=== PATIENT | male | born 1945 | race Caucasian/White ===

== ENCOUNTER 2019-12-29 09:53 | Emergency (ER) | payer OTHER ==
[2019-12-29] MEDS ORDERED: ONDANSETRON 4 MG/2 ML VIAL ONE (10:33)
[2019-12-29] MEDS ORDERED: MORPHINE 4 MG/ML SYR ONE (10:33)
[2019-12-29] MEDS ORDERED: NA CHLORIDE 0.9% 1,000 ML ONE (10:34)
[2019-12-29 11:00] LABS: Absolute Lymphocytes (CBC) 0.8 K/uL (0.7-4.9); Basophils % 0.5 % (0-1.3); Hematocrit 42.9 % (39.6-49.0); Lymphocytes % 9.6 % (15.3-44.8); MPV 8.2 fL (7.6-11.3); RBC Red Blood Cell Count 4.77 M/uL (4.33-5.43)
--- NOTE | 2019-12-29 11:03 | RAD REPORT ---
EXAM DESCRIPTION: RAD - Chest Single View - 12/29/2019 10:57 am CLINICAL HISTORY: CHEST PAIN Chest pain. COMPARISON: No comparisons FINDINGS: Portable technique limits examination quality. The lungs are grossly clear. The heart is normal in size. No displaced fractures. IMPRESSION: No acute intrathoracic process suspected.
[2019-12-29 11:43] LABS: Albumin 3.4 g/dL (3.4-5.0); Bilirubin Direct 0.3 mg/dL (0-0.2); Potassium 4.1 mmol/L (3.5-5.1); Protein, Total 7.4 g/dL (6.4-8.2)
--- NOTE | 2019-12-29 12:06 | RAD REPORT ---
EXAM DESCRIPTION: CTAbdomen Pelvis W Contrast - 12/29/2019 11:57 am CLINICAL HISTORY: Abdominal pain. ABD PAIN COMPARISON: Mri Abdomen W/Wo Cont dated 09/19/2017 TECHNIQUE: Biphasic CT imaging of the abdomen and pelvis was performed with 100 ml non-ionic IV cont rast. All CT scans are performed using dose optimization technique as appropriate and may include automated exposure control or mA/KV adjustment according to patient size. FINDINGS: The lung bases are clear. Patient has a large mass in the right lobe of the liver measuring about 11 cm. Prior MR evaluation de monstrated giant hemangioma characteristics on MR dated 09/19/2017. No biliary dilatation seen. The s pleen, pancreas adrenal glands kidneys are within normal limits. No bowel obstruction, free air, free fluid or abscess. The appendix is surgically absent. Small bila teral fat containing inguinal hernias, slightly larger on the left. No evidence of significant lympha denopathy. Moderate prostatic megaly. No suspicious bony findings. IMPRESSION: No acute intra-abdominal or pelvic finding. Giant hemangioma again noted right lobe of the liver. Moderate prostatomegaly.
[2019-12-29 12:16] LABS: Urine Blood 2+ (NEG); Urine Glucose NEGATIVE (NEG); Urine Protein NEGATIVE (NEG); Urine Specific Gravity 1.025 (1.005-1.030); Urine pH 5.5 (5.0-7.0)
--- NOTE | 2019-12-29 12:50 | RAD REPORT ---
EXAM DESCRIPTION: US - Abdomen Exam Limited - 12/29/2019 12:38 pm CLINICAL HISTORY: RUQ ?GB;Abd pain COMPARISON: Abdomen Pelvis W Contrast dated 12/29/2019 FINDINGS: Gallbladder size is normal. Multiple mobile gallstones are clustered near the neck of the gallbladder. Moderate amount of sludge also present. No wall thickening or pericholecystic fluid. Com mon bile duct is normal with no common duct stone identified. Large masses present in the liver. Patient has a known giant hemangioma from prior imaging. IMPRESSION: Multiple gallstones and moderate sludge volume in a normal-sized gallbladder. No wall thickening, pericholecystic fluid or biliary tree abnormality.
--- NOTE | 2019-12-29 13:15 | ER ---
Nurse's Notes [facility] Name: Florentino Hollingsworth Age: 74 yrs Sex: Male : 1945 Arrival Date: 12/29/2019 Time: 09:55 Bed 13 Private MD: Man Rodriguez Diagnosis: Calculus of gallbladder without cholecystitis Presentation: 12/28 10:14 Chief complaint: Patient states: was just seen at [facility] this morning for RUQ pain iw that started around 0230 today, no vomiting, +nausea . Pt had CT, labs done, all was reported negative. Coronavirus screen: The patient has NOT traveled to a country currently being monitored by the [facility] within the last 14 days. Proceed with normal triage procedures. The patient has NOT had contact with any known and/or suspected case of coronavirus. Proceed with normal triage procedures. Ebola Screen: Patient negative for fever greater than or equal to 101.5 degrees Fahrenheit, and additional compatible Ebola Virus Disease symptoms Patient denies exposure to infectious person. Patient denies travel to an Ebola-affected area in the 21 days before illness onset. No symptoms or risks identified at this time. Initial Sepsis Screen: Does the patient meet any 2 criteria? No. Patient's initial sepsis screen is negative. Does the patient have a suspected source of infection? No. Patient's initial sepsis screen is negative. Risk Assessment: Do you want to hurt yourself or someone else? Patient reports no desire to harm self or others. 10:14 Method Of Arrival: Ambulatory iw 10:14 Acuity: WILLIE 3 iw Historical: - Allergies: 10:17 Aleve; iw - Home Meds: 10:17 None [Active]; iw - PMHx: 10:17 None; iw - PSHx: 10:17 Hernia repair; Appendectomy; bunion; iw - Immunization history:: Adult Immunizations not up to date. - Social history:: Smoking status: Patient denies any tobacco usage or history of. - Family history:: not pertinent. Screenin:40 Abuse screen: Denies threats or abuse. Nutritional screening: No deficits noted. em Tuberculosis screening: No symptoms or risk factors identified. Fall Risk None identified. Assessment: 10:40 General: Appears in no apparent distress. uncomfortable, Behavior is calm, cooperative, em Denies fever. Pain: Complains of pain in right upper quadrant Pain does not radiate. Pain currently is 8 out of 10 on a pain scale. Pain began 0230 this morning. Neuro: Level of Consciousness is awake, alert, obeys commands, Oriented to person, place, time, situation, Appropriate for age. Cardiovascular: Capillary refill < 3 seconds Patient's skin is warm and dry. Respiratory: Airway is patent Respiratory effort is even, unlabored, Respiratory pattern is regular, symmetrical. GI: Patient currently denies nausea, vomiting. Derm: Skin is intact, is healthy with good turgor, Skin is pink, warm \T\ dry. Musculoskeletal: Capillary refill < 3 seconds, Range of motion: intact in all extremities. 11:36 Reassessment: Patient appears in no apparent distress at this time. Patient and/or em family updated on plan of care and expected duration. Pain level reassessed. Patient is alert, oriented x 3, equal unlabored respirations, skin warm/dry/pink. rates pain 5/10 Patient states feeling better. Patient states symptoms have improved. 12:27 Reassessment: Patient appears in no apparent distress at this time. Patient and/or em family updated on plan of care and expected duration. Pain level reassessed. US at bedside. Vital Signs: 10:14 BP 184 / 90; Pulse 58; Resp 16; Temp 98.5; Pulse Ox 100% on R/A; Weight 95.25 kg; iw Height 6 ft. 0 in. (182.88 cm); Pain 8/10; 11:36 BP 168 / 72; Pulse 61; Resp 18; Pulse Ox 99% on R/A; Pain 5/10; em 12:40 BP 162 / 86; Pulse 59; Resp 18; Pulse Ox 100% on R/A; em 13:40 BP 174 / 85; Pulse 58; Resp 18; Pulse Ox 100% on R/A; em 10:14 Body Mass Index 28.48 (95.25 kg, 182.88 cm) iw ED Course: 09:55 Patient arrived in ED. ag5 09:56 Man Rodriguez MD is Private Physician. ag5 10:16 Triage completed. iw 10:17 Arm band placed on. iw 10:18 Eusebio Ramos MD is Attending Physician. ma2 10:27 Arnulfo Jenkins, RN is Primary Nurse. em 10:40 Patient has correct armband on for positive identification. Bed in low position. Call em light in reach. Adult w/ patient. Pulse ox on. NIBP on. 10:45 Initial lab(s) drawn, by me, sent to lab. Inserted saline lock: 20 gauge in right em antecubital area, using aseptic technique. Blood collected. 10:56 Chest Single View XRAY In Process Unspecified. EDMS 11:21 EKG done, by ED staff, reviewed by Eusebio Ramos MD. em1 11:59 CT Abd/Pelvis - IV Contrast Only In Process Unspecified. EDMS 12:42 US Abdomen Limited In Process Unspecified. EDMS 13:14 Luis Rocha MD is Referral Physician. ma2 13:39 No provider procedures requiring assistance completed. IV discontinued, intact, em bleeding controlled, No redness/swelling at site. Pressure dressing applied. Administered Medications: 10:45 Drug: NS 0.9% 1000 ml Route: IV; Rate: 1 bolus; Site: right antecubital; em 13:00 Follow up: IV Status: Completed infusion; IV Intake: 1000ml em 10:45 Drug: Zofran (Ondansetron) 4 mg Route: IVP; Site: right antecubital; em 11:35 Follow up: Response: No adverse reaction em 10:47 Drug: morphine 4 mg Route: IVP; Site: right antecubital; em 11:35 Follow up: Response: No adverse reaction; Marked relief of symptoms; Pain is decreased; em RASS: Alert and Calm (0) Intake: 13:00 IV: 1000ml; Total: 1000ml. em Outcome: 13:14 Discharge ordered by . ma2 13:39 Discharged to home ambulatory, with family. em 13:39 Condition: good 13:39 Discharge instructions given to patient, family, Instructed on discharge instructions, follow up and referral plans. medication usage, Demonstrated understanding of instructions, follow-up care, Prescriptions given X 2. 13:42 Patient left the ED. em Signatures: Dispatcher [employer] Arnulfo Mendoza RN RN em Williams, Irene, RN RN iw Martinez, Eric em1 Eusebio Ramos MD MD ma2 Gaskin, Ajare ag5
--- NOTE | 2019-12-29 13:15 | EDPHYS ---
Physician Documentation [facility] Name: Florentino Hollingsworth Age: 74 yrs Sex: Male : 1945 Arrival Date: 12/29/2019 Time: 09:55 Bed 13 Private MD: Man Rodriguez ED Physician Eusebio Ramos HPI: 12/28 13:12 This 74 yrs old Male presents to ER via Ambulatory with complaints of ma2 Gallbladder Problem. 13:12 The patient presents with abdominal pain in the right upper quadrant. Onset: The ma2 symptoms/episode began/occurred gradually, 1 day(s) ago. Associated signs and symptoms: Pertinent negatives: anorexia, diarrhea, fever. Severity of pain: At its worst the pain was moderate in the emergency department the pain is unchanged. The patient has not experienced similar symptoms in the past, The patient has experienced a previous episode. Historical: - Allergies: 10:17 Aleve; iw - Home Meds: 10:17 None [Active]; iw - PMHx: 10:17 None; iw - PSHx: 10:17 Hernia repair; Appendectomy; bunion; iw - Immunization history:: Adult Immunizations not up to date. - Social history:: Smoking status: Patient denies any tobacco usage or history of. - Family history:: not pertinent. ROS: 13:12 Constitutional: Negative for fever, chills, and weight loss, Cardiovascular: Negative ma2 for chest pain, palpitations, and edema, Respiratory: Negative for shortness of breath, cough, wheezing, and pleuritic chest pain, Abdomen/GI: Negative for abdominal pain, nausea, diarrhea, and constipation. 13:12 All other systems are negative. Exam: 13:12 Constitutional: This is a well developed, well nourished patient who is awake, alert, ma2 and in no acute distress. Chest/axilla: Normal chest wall appearance and motion. Nontender with no deformity. No lesions are appreciated. Cardiovascular: Regular rate and rhythm with a normal S1 and S2. No gallops, murmurs, or rubs. Normal PMI, no JVD. No pulse deficits. Respiratory: Lungs have equal breath sounds bilaterally, clear to auscultation and percussion. No rales, rhonchi or wheezes noted. No increased work of breathing, no retractions or nasal flaring. Abdomen/GI: Soft, non-tender, with normal bowel sounds. No distension or tympany. No guarding or rebound. No evidence of tenderness throughout. 13:12 Neuro: Awake and alert, GCS 15, oriented to person, place, time, and situation. Cranial nerves II-XII grossly intact. Motor strength 5/5 in all extremities. Sensory grossly intact. Cerebellar exam normal. Normal gait. Vital Signs: 10:14 BP 184 / 90; Pulse 58; Resp 16; Temp 98.5; Pulse Ox 100% on R/A; Weight 95.25 kg; iw Height 6 ft. 0 in. (182.88 cm); Pain 8/10; 11:36 BP 168 / 72; Pulse 61; Resp 18; Pulse Ox 99% on R/A; Pain 5/10; em 12:40 BP 162 / 86; Pulse 59; Resp 18; Pulse Ox 100% on R/A; em 13:40 BP 174 / 85; Pulse 58; Resp 18; Pulse Ox 100% on R/A; em 10:14 Body Mass Index 28.48 (95.25 kg, 182.88 cm) iw MDM: 10:18 Patient medically screened. ma2 13:12 Differential diagnosis: gastritis, gastroesophageal reflux disease, pancreatitis. Data ma2 reviewed: vital signs, nurses notes. Counseling: I had a detailed discussion with the patient and/or guardian regarding: the historical points, exam findings, and any diagnostic results supporting the discharge/admit diagnosis, the presence of at least one elevated blood pressure reading (>120/80) during this emergency department visit, the need for outpatient follow up. Response to treatment: the patient's symptoms have markedly improved after treatment, the patient's symptoms have resolved after treatment. 13:15 ED course: prn aware shows no drug seeking. ma2 12/28 10:20 Order name: Basic Metabolic Panel; Complete Time: 11: [facility] 12/28 10:20 Order name: CBC with Diff; Complete Time: 11: [facility] 12/28 10:20 Order name: Creatinine for Radiology; Complete Time: 11:55 [facility] 12/28 10:20 Order name: Hepatic Function; Complete Time: 11:55 [facility] 12/28 10:20 Order name: Lipase; Complete Time: 11: [facility] 12/28 10:33 Order name: Troponin (emerg Dept Use Only); Complete Time: 11:55 ma2 12/28 10:20 Order name: IV Saline Lock; Complete Time: 10:56 ma2 12/28 10:33 Order name: CT Abd/Pelvis - IV Contrast Only; Complete Time: 12:18 ma2 12/28 10:33 Order name: Chest Single View XRAY; Complete Time: 11:55 ma2 12/28 11:36 Order name: Urine Dipstick--Ancillary (enter results); Complete Time: 12:18 em1 12/28 12:19 Order name: US Abdomen Limited; Complete Time: 13:04 ma2 12/28 10:20 Order name: Labs collected and sent; Complete Time: 10:56 ma2 12/28 10:33 Order name: Urine Dipstick-Ancillary (obtain specimen); Complete Time: 11:35 ma2 12/28 10:33 Order name: EKG - Nurse/Tech; Complete Time: 11:21 ma2 Administered Medications: 10:45 Drug: NS 0.9% 1000 ml Route: IV; Rate: 1 bolus; Site: right antecubital; em 13:00 Follow up: IV Status: Completed infusion; IV Intake: 1000ml em 10:45 Drug: Zofran (Ondansetron) 4 mg Route: IVP; Site: right antecubital; em 11:35 Follow up: Response: No adverse reaction em 10:47 Drug: morphine 4 mg Route: IVP; Site: right antecubital; em 11:35 Follow up: Response: No adverse reaction; Marked relief of symptoms; Pain is decreased; em RASS: Alert and Calm (0) Disposition: 12/29/19 13:14 Discharged to Home. Impression: Calculus of gallbladder without cholecystitis. - Condition is Stable. - Discharge Instructions: Cholelithiasis. - Prescriptions for Tylenol- Codeine #3 300-30 mg Oral Tablet - take 2 tablet by ORAL route every 6 hours As needed; 30 tablet. Zofran 4 mg Oral Tablet - take 1 tablet by ORAL route every 12 hours As needed; 20 tablet. - Medication Reconciliation Form, Thank You Letter, Antibiotic Education, Prescription Opioid Use form. - Follow up: Luis Rocha MD; When: Today; Reason: Continuance of care. Signatures: Dispatcher [employer] Arnulfo Mendoza, RN Chhaya Antonio RN RN iw Alzahri, Mohammad, MD MD ma2 Corrections: (The following items were deleted from the chart) 13:42 13:14 12/29/2019 13:14 Discharged to Home. Impression: Calculus of gallbladder without em cholecystitis. Condition is Stable. Forms are Medication Reconciliation Form, Thank You Letter, Antibiotic Education, Prescription Opioid Use. Follow up: Dr. Luis Rocha; When: Today; Reason: Continuance of care. ma2
--- NOTE | 2019-12-30 10:31 | EKG ---
Test Date: 2019-12-29 Test Time: 11:18:24 Prop Sawyer: JENI MEASUREMENT RESULTS: Intervals: Rate: 56 MA: 146 QRSD: 80 QT: 454 QTc: 438 [place]: P: 43 MA: 146 QRS: 31 T: 50 INTERPRETIVE STATEMENTS: Sinus bradycardia Otherwise normal ECG Compared to ECG 12/30/2001 12:24:00 Sinus rhythm no longer present Electronically Signed On 12-30-19 10:29:08 CDT by Portillo Betancourt
== END 2019-12-29 13:42 | disposition home or self-care (01) ==
LOC: ER 09:53
DX: K80.20 Calculus of gallbladder without cholecystitis without obstruction (principal); Z88.6 Allergy status to analgesic agent
CPT/HCPCS: 96361; 93005; 85025; 80048; 36415; 80076; 81003; 84484; 83690; 74177; 71045; 76705; 96375; 96374; 99284; Q9967; J7030; J2405

== ENCOUNTER 2020-01-09 07:45 | Inpatient (IN) | payer OTHER ==
[2020-01-08 12:17] LABS: Protime INR 1.07
[2020-01-09] MEDS ORDERED: CEFOXITIN/SWI 1gm 1 GM/10 ML SYR ONE (08:05)
[2020-01-09] MEDS ORDERED: Ringers Lactate 1,000 ML IV ONE ×2 (08:05→10:09)
[2020-01-09] MEDS ORDERED: FENTANYL CITR 100 MCG/2 ML ONE ×2 (08:09→09:10)
[2020-01-09] MEDS ORDERED: propofoL 200 MG/20 ML VIAL IV ONE (08:09)
[2020-01-09] MEDS ORDERED: ROCURONIUM 50 MG/5 ML VIAL IV ONE (08:09)
[2020-01-09] MEDS ORDERED: LIDOCAINE 1% MPF 5 ML VIAL ONE (08:09)
[2020-01-09] MEDS: BUPIVACA 0.5%/EPI 0.0005%/PF 30 ML VIAL ONE ×2 (08:44→08:57)
[2020-01-09] MEDS ORDERED: GLYCOPYRROLATE 0.2 MG/ML SYR ONE (09:17)
[2020-01-09] MEDS ORDERED: ONDANSETRON 4 MG/2 ML VIAL ONE (10:25)
[2020-01-09] MEDS ORDERED: NEOSTIGMINE 1 MG/ML -5 ML ONE (10:25)
--- NOTE | 2020-01-09 10:56 | P.OP ---
Preoperative diagnosis: Acute on Chronic Cholecystitis Postoperative diagnosis: Gangenous Cholecystitis with Abscess Primary procedure: Laparoscopic Cholecystectomy Anesthesia: GETA + Local Estimated blood loss: <20cc Specimen: Gallbladder Findings: Gangrenous Gallbladder, Short Cystic Duct, Intra-Abdominal Abscess Complications: None Drain(s): Other (10mm Flat MIKE) Transferred to: Recovery Room Condition: Good
[2020-01-09] MEDS ORDERED: MEPERIDINE HCL 25 MG/0.5 ML ONE (11:02)
[2020-01-09] MEDS ORDERED: MEPERIDINE HCL 50 MG/ML ONE ×2 (11:24→11:58)
[2020-01-09] MEDS ORDERED: ONDANSETRON 4 MG/2 ML VIAL IV PRN (11:25)
[2020-01-09] MEDS: INSULIN -REGULAR HUMAN 50 UNIT/0.5 ML ML SQ SCH ×3 (11:30→19:56)
[2020-01-09] MEDS: HYDROMORPHONE HCL 1 MG/ML INJ IV PRN ×2 (11:40→11:46)
[2020-01-09] MEDS: Ringers Lactate 1,000 ML IV SCH ×2 (12:00→22:00)
--- NOTE | 2020-01-09 12:30 | OP ---
Date of Procedure: 01/09/2020 Surgeon: Dinesh Hensley MD, Preoperative Diagnosis: Acute on chronic cholecystitis. Postoperative Diagnoses: Gangrenous cholecystitis with abscess. Primary Procedure: Laparoscopic cholecystectomy. Anesthesia: General endotracheal plus local with 0.5% Marcaine with epinephrine. Estimated Blood Loss: Less than 20 mL. Specimens: Gallbladder. Findings: 1. Gangrenous gallbladder. 2. Very Short cystic duct. 3. Intraabdominal abscess and gross bile spillage from rupture of gallbladder prior to manipulation. 4. Omental attachments to the anterior surface of the gallbladder encasing the gallbladder. Drains: 10 mm flat MIKE drain placed in the subhepatic space, transferred to recovery room in good condition. Procedure In Detail: After informed consent was obtained, patient was brought to the operating room, prepped and draped in the usual sterile fashion. After adequate anesthesia was achieved, the supraumbilical area was anesthetized with 0.25% Marcaine, sharply incised. A 5 mm trocar was introduced in the abdomen without complication. Insufflation was obtained to 15 mmHg at this time. The area was inspected. There was no injury to vital structures upon entry to the abdomen. Additional trocar site was chosen in the epigastrium, this was similarly anesthestized, sharply incised. A 5 mm trocar was introduced in the abdomen without evidence of complication under direct visualization. Additionally, the umbilical trocar was removed and the umbilical trocar site was upsized to a 12 mm under direct visualization without evidence of complication. 2 additional trocar sites were chosen in the right upper quadrant , these were similarly sharply incised. A 5 mm trocar was introduced in the abdomen without evidence of complication. The patient was positioned head up right-side up position. Ratcheted grasper was used to visualize the gallbladder , which was found to be grossly inflamed and gangrenous. As I dissected the omentum off the anterior surface of the gallbladder, gross pus was encountered between the omentum and the gallbladder with a gangrenous anterior gallbladder evident on examination with bile spillage in this area consistent with perforated gallbladder. I then dissected the omentum off the anterior surface of the gallbladder and down to the Osmani pouch area. There were gross significant inflammatory changes down here. Tissues were quite tenuous and friable. I used a combination of sharp and blunt dissection as well as electrocautery to dissect and visualize the cystic duct and cystic artery. These were difficult to identify after skeletonizing these structures after quite a bit of time and careful dissection; however, the case was complicated by continuous bile spillage and pus draining from the gallbladder complicating the visualization. I attempted to stay high on the gallbladder but the amount of necrosis made visualization difficult, the gallbladder was opened and the duct was not visualizable internally due to gangrenous gelatinous appearance. I was unable to obtain the critical view but 2 structures were identified as the cystic duct and cystic artery. These were both doubly clipped on the proximal side, singly on the distal side and the LigaSure was used take the cystic artery between clips. The cystic duct was cut with Endo Andrew. There was no bile spillage from the proximal aspects of the cystic duct and cystic artery clip had good aposition. I then carefully dissected the gallbladder off the hepatic fossa. The entire posterior surface of the gallbladder was completely gangrenous and friable and essentially gelatinous in consistency. I removed it from the posterior surface of the gallbladder and placed it in an EndoCatch bag. There was some spillage of stones at this point. I retrieved all visible stones at this point, which were small and granular, yellow at this point, and placed them in EndoCatch bag and removed through the umbilical trocar with the specimen. I brought a Ray-Kt in to help achieve hemostasis in the area of the hepatic fossa, which was easily achieved. At this point, the area was copiously irrigated multiple times and completely clear. The Ray-Kt was then removed and no additional hemostatic maneuvers were required. I then fulgurated the tenuous areas of the hepatic fossa with electrocautery and copiously irrigated the abdomen multiple times until completely clear. I then inspected the clips, found to be in good anatomic position. There was no bleeding or spillage of bile at the end of the procedure. Under desufflation pressure, this was inspected and found hemostasis to be ensured at this point. I then brought a 10 mm flat MIKE drain in through the most lateral trocar and placed in the subhepatic space and secured to the skin with 3-0 nylon suture as a drain stitch. I then removed the umbilical trocar after placing in the neutral position and closed the umbilical trocar site using a 0 Vicryl interrupted fashion, good approximation of tissues. The trocars were then copiously irrigated and closed after completely desufflating the abdomen under direct visualization without evidence of complication or bile leakage. All trocars were copiously irrigated multiple times and completely clean and closed with a 4-0 Monocryl in running fashion, Dermabond placed over top. Patient tolerated the procedure well without evidence of complication and transferred to PACU in good condition. All counts were correct at the end of the case. TITO/ELICIA Voice ID: [id number] Report ID: [id number]
[2020-01-09] MEDS: PIPER/TAZO/NS 3.375gm 3.375 GM/100 ML BAG IVPB SCH ×2 (15:51→19:56)
[2020-01-09] MEDS: HYDROCODONE/APAP 7.5/325 MG TAB PO PRN ×3 (15:51→23:56)
[2020-01-09 17:20] VITALS: BMI 26.4
[2020-01-09] MEDS ORDERED: PNEUMOCOCCAL VACCINE 0.5 ML IMVAC ONE (18:00)
[2020-01-10] MEDS: PIPER/TAZO/NS 3.375gm 3.375 GM/100 ML BAG IVPB SCH ×3 (02:02→16:38)
[2020-01-10 05:44] LABS: Basophils % 0.2 % (0-1.3); Hematocrit 34.9 % (39.6-49.0); Lymphocytes % 10.7 % (15.3-44.8); MPV 7.7 fL (7.6-11.3)
[2020-01-10 05:55] LABS: Albumin 2.5 g/dL (3.4-5.0); Bilirubin Total 1.2 mg/dL (0.2-1.0); Magnesium 2.1 mg/dL (1.8-2.4); Phosphorus 2.8 mg/dL (2.5-4.9); Potassium 4.2 mmol/L (3.5-5.1); Protein, Total 6.4 g/dL (6.4-8.2)
[2020-01-10] MEDS: INSULIN -REGULAR HUMAN 50 UNIT/0.5 ML ML SQ SCH ×7 (07:30→19:53)
[2020-01-10] MEDS ORDERED: ENSURE HIGH PROTEIN 237 ML CAN PO PRN (10:18)
--- NOTE | 2020-01-10 10:18 | P.PN ---
Subjective Date of Service: 01/10/20 Subjective: Improving (Patient feels much better.) Physical Examination - Vital Signs Temperature: 99.2 F Blood Pressure: 141/72 Pulse: 62 Respirations: 16 Pulse Ox (%): 98 - Physical Exam General: Alert, In no apparent distress, Cooperative HEENT: Mucous membr. moist/pink Respiratory: Diminished Cardiovascular: No edema Gastrointestinal: Other (soft, mild appropriate TTP, ND, MIKE serosanguanous with bile coloration. ) Musculoskeletal: No clubbing, No swelling, No erythema, No tenderness Neurological: Normal speech - Studies Laboratory Data (last 24 hrs) 01/10/20 05:20: Sodium 139, Potassium 4.2, BUN 13, Creatinine 1.11, Glucose 111 H, Phosphorus 2.8, Magnesium 2.1, Total Bilirubin 1.2 H, AST 32, ALT 46, Alkaline Phosphatase 78 01/10/20 05:20: WBC 9.5, Hgb 12.0 L D, Hct 34.9 L D, Plt Count 289 D Assessment And Plan - Current Problems (Diagnosis) (1) Acute gangrenous cholecystitis Current Visit: Yes Status: Acute Plan: Gen: Pain is generally controlled with current regime, but patient was trying to avoid pain medication CVS: HD stable Pulm: Respiratory insufficiency likely due to abdominal pain, encourage incentive spirometry GI: continue MIKE drain, teach patient to document output and manage drain, bile staining in drain is not unexpected as there was gross bile spillage during surgery and alot of irrigation, therefore drain output will likely remain elevated, serial exams FEN: continue IV hydration, electrolyte replacement protocol, advance to soft diet, but also supplement with Ensure ID: continue Zosyn - patient had jade pus and gangrenous gallbladder with bile spillage in abdomen Prophylaxis: start lovenox, but continue to ambulate with assist, will change sliding scale
[2020-01-10] MEDS ORDERED: D50W 25 GM/50 ML SYRINGE/VIAL IV PRN (10:20)
[2020-01-10] MEDS ORDERED: GLUCAGON 1 MG/VIAL IM PRN (10:20)
[2020-01-10] MEDS: HYDROMORPHONE HCL 1 MG/ML INJ IV PRN ×2 (10:47→18:51)
[2020-01-10] MEDS: Ringers Lactate 1,000 ML IV SCH ×3 (10:48→22:56)
[2020-01-10] MEDS: HYDROCODONE/APAP 7.5/325 MG TAB PO PRN (16:38)
[2020-01-11] MEDS: PIPER/TAZO/NS 3.375gm 3.375 GM/100 ML BAG IVPB SCH ×3 (00:10→17:10)
[2020-01-11] MEDS: HYDROMORPHONE HCL 1 MG/ML INJ IV PRN (01:23)
[2020-01-11 06:06] LABS: Absolute Lymphocytes (CBC) 0.9 K/uL (0.7-4.9); Basophils % 0.3 % (0-1.3); Hematocrit 33.9 % (39.6-49.0); Lymphocytes % 14.8 % (15.3-44.8); MPV 7.4 fL (7.6-11.3); RBC Red Blood Cell Count 3.76 M/uL (4.33-5.43)
[2020-01-11 06:18] LABS: Albumin 2.3 g/dL (3.4-5.0); Bilirubin Total 0.7 mg/dL (0.2-1.0); Phosphorus 2.4 mg/dL (2.5-4.9); Protein, Total 6.2 g/dL (6.4-8.2)
[2020-01-11] MEDS: INSULIN -REGULAR HUMAN 50 UNIT/0.5 ML ML SQ SCH ×7 (07:30→21:00)
--- NOTE | 2020-01-11 11:01 | P.PN ---
Subjective Date of Service: 01/11/20 Subjective: Improving (Patient pain continues to improve, no acute issues, tolerating diet well) Physical Examination - Vital Signs Temperature: 98.8 F Blood Pressure: 160/90 Pulse: 76 Respirations: 16 Pulse Ox (%): 98 - Physical Exam General: Alert, In no apparent distress, Cooperative HEENT: Mucous membr. moist/pink Respiratory: Clear to auscultation bilaterally, Normal air movement Cardiovascular: No edema, Normal S1 S2 Gastrointestinal: Other (soft, mild appropriate TTP, ND, incisions clean, MIKE continues to appear bilious) Musculoskeletal: No clubbing, No swelling, No contractures Neurological: Normal speech - Studies Laboratory Data (last 24 hrs) 01/11/20 05:26: Sodium 139, Potassium 4.0, BUN 10, Creatinine 0.96, Glucose 92, Phosphorus 2.4 L, Magnesium 2.0, Total Bilirubin 0.7, AST 21, ALT 37, Alkaline Phosphatase 65 01/11/20 05:26: WBC 6.2 D, Hgb 11.6 L, Hct 33.9 L, Plt Count 260 Assessment And Plan - Current Problems (Diagnosis) (1) Acute gangrenous cholecystitis Current Visit: Yes Status: Acute Plan: Gen: Pain is generally controlled with current regime, but patient was trying to avoid pain medication CVS: HD stable Pulm: Respiratory insufficiency likely due to abdominal pain, encourage incentive spirometry GI: continue MKIE drain, teach patient to document output and manage drain, bile staining in drain is not unexpected as there was gross bile spillage during surgery and alot of irrigation, therefore drain output will likely remain elevated, - will get HIDA scan to rule out bile leakage, if positive will get GI consult for ERCP. continue serial exams FEN: continue IV hydration, electrolyte replacement protocol, advance to soft diet, but also supplement with Ensure ID: continue Zosyn - patient had jade pus and gangrenous gallbladder with bile spillage in abdomen Prophylaxis: start lovenox, but continue to ambulate with assist, will change sliding scale
[2020-01-11] MEDS: Ringers Lactate 1,000 ML IV SCH (14:00)
--- NOTE | 2020-01-11 14:25 | RAD REPORT ---
EXAM DESCRIPTION: NM - Hepatobiliary System Imagin - 01/11/2020 1:56 pm CLINICAL HISTORY: Abdominal pain TECHNIQUE: The patient was administered 6.2 millicuries technetium Choletec and images of the abdome n obtained for 55 minutes FINDINGS: Liver demonstrates prompt radiotracer uptake. A cholecystectomy has been performed. Radiotracer extends along the inferior aspect of the liver into a percutaneous drain. Radiotracer als o extends along the lateral aspect of the liver. Radiotracer is not visualized within small bowel. IMPRESSION: Cholecystectomy Bile leak
[2020-01-11] MEDS: HYDROCODONE/APAP 7.5/325 MG TAB PO PRN ×2 (14:31→19:41)
--- NOTE | 2020-01-11 15:26 | P.PN ---
Date of Service: 01/11/20 Patient had HIDA scan which shows bile leak, draining into MIKE drain in subhepatic space. - Will initiate transfer to higher level of care to get ERCP with possible stent placement and indicated procedures. - There is no Superintendent Power sourcing consultant at our facility
[2020-01-11] MEDS ORDERED: D5.45NS W/KCL 20MEQ 20 MEQ/1,000 ML BAG IV SCH (16:00)
[2020-01-11 16:08] VITALS: TEMP 98.3
[2020-01-11 21:24] VITALS: BP 146/82
[2020-01-11 23:02] VITALS: O2SAT 98
--- NOTE | 2020-01-27 11:09 | P.DS ---
Admission Date: 01/09/20 Discharge Date: 01/27/20 Disposition: TRANSFER TO [facility] Condition: SERIOUS Procedures: Laparoscopic Cholecystectomy - Problems (1) Acute gangrenous cholecystitis Status: Acute Brief History of Present Illness: Patient is a 74 year old man who presented to clinic with complaints of RUQ abdominal pain, he was scheduled for laparoscopic cholecystectomy. Hospital Course: Patient had very difficult laparoscopic cholecystectomy. Intraoperative findings included gangrenous changes to gallbladder, free rupture of gallbladder with stone spillage, abscess, and significant inflammatory changes extending to the bile ducts. He had a drain placed in the RUQ. He felt well after surgery, however his MIKE appeared bilious Post op and as such I ordered a HIDA scan and a bile leak was confirmed, as such we do not have a natural gas treating unit operator availble for ERCP and as such he was transferred to [facility] for higher level of care and evaluation of his biliary system. He was doing well clinically and his labs were close to normal. He was hemodynamically stable. Vital Signs/Physical Exam: Temp Pulse Resp BP Pulse Ox 98.3 F 68 18 146/82 H 98 01/11/20 20:00 01/11/20 20:00 01/11/20 20:00 01/11/20 20:00 01/11/20 20:00 General: Alert, In no apparent distress, Cooperative HEENT: Mucous membr. moist/pink Respiratory: Clear to auscultation bilaterally Cardiovascular: Regular rate/rhythm Gastrointestinal: Other (soft, mild appropriate post op TTP, ND, MIKE was bilious. incisions were clean and dry) Musculoskeletal: No clubbing, No swelling Integumentary: No rashes, No significant lesion Neurological: Normal gait, Normal speech Laboratory Data at Discharge: WBC 6.2 K/uL (4.3-10.9) D 01/11/20 05:26 Hgb 11.6 g/dL (13.6-17.9) L 01/11/20 05:26 Hct 33.9 % (39.6-49.0) L 01/11/20 05:26 Plt Count 260 K/uL (152-406) 01/11/20 05:26 PT 12.6 SECONDS (9.5-12.5) H 01/08/20 11:20 INR 1.07 01/08/20 11:20 APTT 30.9 SECONDS (24.3-36.9) 01/08/20 11:20 Sodium 139 mmol/L (136-145) 01/11/20 05:26 Potassium 4.0 mmol/L (3.5-5.1) 01/11/20 05:26 BUN 10 mg/dL (7-18) 01/11/20 05:26 Creatinine 0.96 mg/dL (0.55-1.3) 01/11/20 05:26 Glucose 92 mg/dL (74-106) 01/11/20 05:26 Phosphorus 2.4 mg/dL (2.5-4.9) L 01/11/20 05:26 Magnesium 2.0 mg/dL (1.8-2.4) 01/11/20 05:26 Total Bilirubin 0.7 mg/dL (0.2-1.0) 01/11/20 05:26 AST 21 U/L (15-37) 01/11/20 05:26 ALT 37 U/L (12-78) 01/11/20 05:26 Alkaline Phosphatase 65 U/L (45-117) 01/11/20 05:26 Home Medications: Amox/Clavulanate [Augmentin 875-125 Tab] 875 mg PO BID #14 tab 01/11/20 Hydrocodone 7.5/APAP 325 [[place] 7.5/325 mg] 1 tab PO Q6H PRN #20 tab 01/11/20 New Medications: Amox/Clavulanate [Augmentin 875-125 Tab] 875 mg PO BID #14 tab Hydrocodone 7.5/APAP 325 [[place] 7.5/325 mg] 1 tab PO Q6H PRN #20 tab PRN Reason: Pain Diet: NPO Activity: Bedrest Time spent managing pt's care (in minutes): 45
== END 2020-01-11 21:25 | disposition short-term general hospital (02) | DRG 418 ==
LOC: OR 07:45 → ERHOLD 11:30 → 4TH 12:01
PROVIDERS: ADMIT Surgery; ATTEND Surgery
PROC: 0W9F40Z Drainage of Abdominal Wall with Drainage Device, Percutaneous Endoscopic Approach (ICD-10-PCS; 2020-01-09)
PROC: 0FT44ZZ Resection of Gallbladder, Percutaneous Endoscopic Approach (ICD-10-PCS; principal; 2020-01-09 08:30)
DX: K80.12 Calculus of gallbladder with acute and chronic cholecystitis without obstruction (principal); K82.A2 Perforation of gallbladder in cholecystitis; K91.89 Other postprocedural complications and disorders of digestive system; K82.A1 Gangrene of gallbladder in cholecystitis; D18.03 Hemangioma of intra-abdominal structures
CPT/HCPCS: 36415; 78226; 80053; 82947; 83735; 84100; 85025; 85610; 85730; 86850; 86900; 86901; 88304; 94760; A9537; J1170; J2175; J2405; J2543; J2704; J2710; J3010; J7120